=== PATIENT | female | born 1975 | race Caucasian/White ===

== ENCOUNTER 2019-10-20 14:10 | Emergency (ER) | payer OTHER, SELFPAY ==
[~2019-10-20] VITALS: Ht 167.6 cm; Wt 83.9 kg
[2019-10-20 14:10] VITALS: BP_SYST 107
--- NOTE | 2019-10-20 14:10 | NUR ---
Patient to ER surge tent for evaluation. Side rails up.
--- NOTE | 2019-10-20 14:11 | NUR ---
Patient came from home for evaluation of COVID-19 symptoms. Patient is complaining of bodyaches, throat pain, headache, and dizziness since .
--- NOTE | 2019-10-20 15:40 | NUR ---
ER Dr. Jaimes at bedside examining patient.
[2019-10-20 16:12] VITALS: BP_SYST 107
--- NOTE | 2019-10-20 16:12 | NUR ---
Patient given written and verbal discharge instructions and verbalizes understanding. ER MD discussed with patient the results and treatment provided. Patient in stable condition. ID arm band removed. Patient educated on pain management and to follow up with PMD. Pain Scale 0/10. Opportunity for questions provided and answered. Medication side effect fact sheet provided.
== END 2019-10-20 16:12 | disposition home or self-care (01) ==
LOC: SED 14:10
DX: B34.9 Viral infection, unspecified (principal); Z20.828 Contact with and (suspected) exposure to other viral communicable diseases
CPT/HCPCS: 99283; C9803; U0003